=== PATIENT | female | born 1975 | race Caucasian/White ===

== ENCOUNTER 2017-02-02 12:21 | Observation (INO) | payer BC ==
[~2017-02-02] VITALS: Ht 170.2 cm; Wt 143.0 kg
[2017-02-02 12:23] VITALS: BP 163/104; PULSE 70; RESP 20; TEMP 98.7; O2SAT 98
[2017-02-02 12:56] LABS: BASOPHIL # 0.1 TH/MM3 (0-0.2); BASOPHIL % 0.7 % (0.0-2.0); EOSINOPHIL # 0.2 TH/MM3 (0-0.4); EOSINOPHIL % 1.1 % (0.0-4.0); HEMO FLAGS DIFF FINAL; LYMPH % 22.4 % (9.0-44.0); MEAN CORPUSCULAR HEMOGLOBIN 26.1 PG (27.0-34.0); MEAN CORPUSCULAR HGB CONC 33.4 % (32.0-36.0); MONO % 7.6 % (0.0-8.0); NEUT % 68.2 % (16.0-70.0); PLATELET COUNT 416 TH/MM3 (150-450); RED BLOOD COUNT 4.74 MIL/MM3 (4.00-5.30); RED CELL DISTRIBUTION WIDTH 16.4 % (11.6-17.2); WHITE BLOOD COUNT 13.2 TH/MM3 (4.0-11.0)
--- NOTE | 2017-02-02 13:19 | RADRPT ---
EXAM DATE/TIME: 02/02/2017 12:54 [facility] COMPARISON: No previous studies available for comparison. INDICATIONS : Chest pain. MEDICAL HISTORY : None. SURGICAL HISTORY : None. ENCOUNTER: Initial ACUITY: 1 day PAIN SCORE: 0/10 LOCATION: Bilateral chest FINDINGS: PA and lateral views of the chest demonstrate the lungs to be symmetrically aerated without evidence of mass, infiltrate or effusion. The cardiomediastinal contours are unremarkable. Osseous structure s are intact. CONCLUSION: No acute disease. Bjorn Romero MD on February 02, 2017 at 13:17 Board Certified Radiologist. This report was verified electronically.
[2017-02-02 13:20] LABS: ANION GAP 6 MEQ/L (5-15); BICARBONATE 27.2 MEQ/L (21.0-32.0); BLOOD UREA NITROGEN 10 MG/DL (7-18); CHLORIDE 106 MEQ/L (98-107); GLOMERULAR FILTRATION RATE 90 ML/MIN (>89); POTASSIUM 4.1 MEQ/L (3.5-5.1); SODIUM (NA) 139 MEQ/L (136-145)
[2017-02-02 13:27] LABS: CREATINE KINASE 78 U/L (26-192)
--- NOTE | 2017-02-02 14:02 | PD ---
HPI Chief Complaint: Chest Pain Time Seen by Provider: 14:01 Travel History International Travel<30 days: No Contact w/Intl Traveler<30days: No Traveled to known affect area: No History of Present Illness HPI 41-year-old female came to the emergency room with history of left-sided chest pain radiating to her left side of the jaw and left shoulder. Patient says the pain came out of nowhere around 11:00 when she was at class. Currently she says the pain is 7 out of 10. She had EKG and blood test done was she was in the waiting room. By that time she came in here all the test results were back. Blood test and chest x-ray are within normal limit. No relieving factors. Vital signs are stable. She has never had this kind of pain in the past. No recent long distance travel or any procedure which required prolonged bed rest. No leg pain or swelling of the legs. PFSH Past Medical History Narrative Medical List of her past medical, surgical, social and family history reviewed from the nursing note. Depression: Yes Diabetes: Yes (NO MEDS ) Patient Takes Glucophage: No Thyroid Disease: Yes (HYPO) ?: Not Dilation and Curettage (D&C): Yes Social History Alcohol Use: No Tobacco Use: Yes (PPD) Substance Use: No Allergies-Medications (Allergen,Severity, Reaction): Coded Allergies: Penicillin (Verified Allergy, Severe, rash, 02/08/17) Metformin (Verified Allergy, Intermediate, diarrhea, 02/02/17) Sulfa (Verified Allergy, Mild, upset stomach, 02/02/17) Comments List of her allergies reviewed from the nursing note. Reported Meds & Prescriptions Reported Meds & Active Scripts Active Reported Levothyroxine (Levothyroxine Sodium) 125 Mcg Tab 125 Mcg PO DAILY Omeprazole 40 Mg Cap 40 Mg PO DAILY Claritin (Loratadine) 10 Mg Tab 10 Mg PO DAILY Wellbutrin Xl 24 HR (Bupropion HCl) 300 Mg Tab 300 Mg PO DAILY Narrative Medication Awaiting for the nurse to do med reconciliation. Review of Systems Except as stated in HPI: all other systems reviewed are Neg Physical Exam Narrative GENERAL: Awake, alert, morbidly obese, mild distress, anxious SKIN: Focused skin assessment warm/dry. HEAD: Atraumatic. Normocephalic. EYES: Pupils equal and round. No scleral icterus. No injection or drainage. ENT: No nasal bleeding or discharge. Mucous membranes pink and moist. NECK: Trachea midline. No JVD. CARDIOVASCULAR: Regular rate and rhythm. No murmur appreciated. RESPIRATORY: No accessory muscle use. Clear to auscultation. Breath sounds equal bilaterally. GASTROINTESTINAL: Abdomen soft, non-tender, nondistended. Hepatic and splenic margins not palpable. MUSCULOSKELETAL: No obvious deformities. No clubbing. No cyanosis. No edema. NEUROLOGICAL: Awake and alert. No obvious cranial nerve deficits. Motor grossly within normal limits. Normal speech. PSYCHIATRIC: Appropriate mood and affect; insight and judgment normal. Data Data Last Documented VS Orders Electrocardiogram (02/02/17 12:25) Complete Blood Count With Diff (02/02/17 12:25) Basic Metabolic Panel (Bmp) (02/02/17 12:25) Ckmb (Isoenzyme) Profile (02/02/17 12:25) Troponin I (02/02/17 12:25) Chest, Pa & Lat (02/02/17 12:25) Aspirin Chew (Aspirin Chew) (02/02/17 14:15) Admit Order (Ed Use Only) (02/02/17 14:12) Labs MDM Medical Decision Making Medical Screen Exam Complete: Yes Emergency Medical Condition: Yes Medical Record Reviewed: Yes Interpretation(s) Twelve-lead EKG was reviewed by me. Normal sinus rhythm, normal axis, nonspecific ST-T wave changes. Heart rate of 65 bpm. Differential Diagnosis ACS, no STEMI, nonspecific chest pain Narrative Course 2:05 PM I have ordered 2 baby aspirin's for chew. Given the atypical chest pain I've ordered an observation in the chest pain center. Procedures EKG Prior to Arrival: Yes Diagnosis Primary Impression: Chest pain Qualified Code: R07.9 - Chest pain, unspecified type Admitting Information Admitting Physician Requests: Observation Magdy Mckay MD Feb 02, 2017 14:02 Eosinophils (%) (Auto) 1.1 % Basophils (%) (Auto) 0.7 % Neutrophils # (Auto) 9.0 TH/MM3 Lymphocytes # (Auto) 3.0 TH/MM3 Monocytes # (Auto) 1.0 TH/MM3 Eosinophils # (Auto) 0.2 TH/MM3 Basophils # (Auto) 0.1 TH/MM3 CBC Comment DIFF FINAL Differential Comment Sodium Level 139 MEQ/L Potassium Level 4.1 MEQ/L Chloride Level 106 MEQ/L Carbon Dioxide Level 27.2 MEQ/L Anion Gap 6 MEQ/L Blood Urea Nitrogen 10 MG/DL Creatinine 0.72 MG/DL Estimat Glomerular Filtration 90 ML/MIN Rate Random Glucose 105 MG/DL Calcium Level 8.8 MG/DL Total Creatine Kinase 78 U/L Troponin I LESS THAN 0.02 NG/ML MDM Medical Decision Making Medical Screen Exam Complete: Yes Emergency Medical Condition: Yes Medical Record Reviewed: Yes Interpretation(s) Twelve-lead EKG was reviewed by me. Normal sinus rhythm, normal axis, nonspecific ST-T wave changes. Heart rate of 65 bpm. Differential Diagnosis ACS, no STEMI, nonspecific chest pain Narrative Course 2:05 PM I have ordered 2 baby aspirin's for chew. Given the atypical chest pain I've ordered an observation in the chest pain center. Procedures EKG Prior to Arrival: Yes Diagnosis Primary Impression: Chest pain Qualified Code: R07.9 - Chest pain, unspecified type Admitting Information Admitting Physician Requests: Observation Magdy Mckay MD Feb 02, 2017 14:02
[2017-02-02] MEDS ORDERED: ASPIRIN 81 MG CHEW TAB CHEW ONE (14:15)
[2017-02-02] MEDS ORDERED: ONDANSETRON HCL 4 MG/2 ML VIAL IV PRN (14:45)
[2017-02-02] MEDS ORDERED: NITROGLYCERIN 0.4 MG SL 25 TABS/BTL SL PRN (14:45)
[2017-02-02] MEDS ORDERED: SODIUM CHLORIDE 0.9% FLUSH 10 ML FLUSH IV FLUSH PRN (14:45)
[2017-02-02 15:11] VITALS: BP 123/74; PULSE 70; RESP 18; O2SAT 99
--- NOTE | 2017-02-02 15:29 | HHI.HP ---
HPI Primary Care Physician No Primary Care Physician Chief Complaint Chest pain History of Present Illness 41-year-old female presents to emergency room with an onset of chest discomfort at 11 AM. Characterized as a sharp and stabbing quick pain located substernally. Severity 10/10. Currently 7/10. Radiation to her left arm and left jaw. Duration has been constant although waxed and waned in severity. Associated symptoms included nausea. No vomiting or diaphoresis. No known precipitating factors. No known relieving factors. Position, twisting, or movement do not make pain better or worse. She has never had chest discomfort in the past or formal cardiac testing. Endorses she has been told she is a pre- diabetic and is a current smoker. No recent travel, illness, or history of DVT. Review of Systems General: No fatigue,weakness, fever, chills, or recent illness HEENT: No STEPHEN, no vision changes, no nasal congestion or drainage, no dysphasia CV: As stated above, continues to have chest discomfort /10. No palpitations, intermittent leg pain, or dizziness RESP: No SOB, cough, wheeze, or recent URI GI: Nausea has subsided. No vomiting, bowel changes, diarrhea, constipation, pain, distention, melena, blood in the stool. No change in appetite, no unintentional weight gain or weight loss. : No dysuria, urgency, frequency. Currently on her menses. EXT: No lower leg edema, no paraesthesias MS: No discomfort or change in ROM NEURO: No change in memory, dizziness, difficulty with balance, LOC, motor/ sensory deficits PSYCH: Reports situational stress regarding working full-time and going to school full-time. Endorses lack of support is her family support lives in [place]. No suicidal ideation. SKIN: No rashes, no concerning lesions Past Family Social History Allergies: Coded Allergies: Metformin (Verified Allergy, Intermediate, diarrhea, 02/02/17) Sulfa (Verified Allergy, Mild, upset stomach, 02/02/17) Past Medical History Hypothyroidism, GERD, depression Past Surgical History Cholecystectomy, tonsillectomy, right knee ACL repair, cyst removed from right wrist age 20 Reported Medications Levothyroxine sodium 125 mcg daily Wellbutrin 300 mg daily Claritin 10 mg daily Omeprazole 40 mg daily Active Ordered Medications Current Medications Medications (Trade) Dose Ordered Sig/Conchis Route Start Time Stop Time Status Last Admin (Tylenol) 500 mg Q4H PRN PO 02/02/17 14:45 (Zofran Inj) 4 mg Q6H PRN IV 02/02/17 14:45 (Nitrostat Sl) 0.4 mg Q5M PRN SL 02/02/17 14:45 Family History Positive for early onset cardiovascular disease. Mother cardiac stents in her mid 40s, sister cardiac stent at age 32. Father at age 34 from brain cancer. Social History No known hyperlipidemia or hypertension. Last visit to PCP nearly 2 years ago she was told she is a "prediabetic." Smokes 1 pack daily since age of 14. Denies any alcohol or illegal drug use. 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 Single. No chance of . Last menses 02/02/17. Past cardiac testing No formal cardiac testing. Never required a bottle carrier. Physical Exam Vital Signs Vital Signs Date Time Temp Pulse Resp B/P Pulse Ox O2 Delivery O2 Flow Rate FiO2 02/02/17 15:11 70 18 123/74 99 Room Air 02/02/17 12:23 98.7 70 20 163/104 98 Room Air Physical Exam GENERAL: Alert WN, WD, NAD, pleasant, obese, female HEAD: NC, AT EYES: Sclera clear, conjunctiva without injection, pupils equal and round ENT: Mucous membranes pink and moist NECK: Supple, no masses CV: RRR, without murmur, rub, gallop, no JVD, S1-S2 no S3-S4. Generalized chest discomfort with palpation, however pain not reproducible. RESP: Clear lungs throughout bilateral, no crackles, wheeze, rhonchi, symmetrical chest rise, nonlabored, able to speak in full sentences ABD: Soft, obese, NT, ND, no masses, positive bowel tones, negative Samayoa's sign BACK: No CVAT EXT: Pulses +24, no dependent edema MS: Normal tone 4 extremities, nontender, no obvious deformities, full range of motion NEURO: CN II through CN XII grossly intact, motor strength 5/5, gait WNL PSYCH: A+O 3, pleasant affect, appropriate speech, appropriate mood and affect , insight and judgment SKIN: Normal turgor, normal texture, no lesions, no rashes, brisk cap refill, even hair distribution Laboratory Laboratory Tests Test 02/02/17 12:37 White Blood Count 13.2 Red Blood Count 4.74 Hemoglobin 12.4 Hematocrit 37.0 Mean Corpuscular Volume 78.0 Mean Corpuscular Hemoglobin 26.1 Mean Corpuscular Hemoglobin 33.4 Concent Red Cell Distribution Width 16.4 Platelet Count 416 Mean Platelet Volume 7.7 Neutrophils (%) (Auto) 68.2 Lymphocytes (%) (Auto) 22.4 Monocytes (%) (Auto) 7.6 Eosinophils (%) (Auto) 1.1 Basophils (%) (Auto) 0.7 Neutrophils # (Auto) 9.0 Lymphocytes # (Auto) 3.0 Monocytes # (Auto) 1.0 Eosinophils # (Auto) 0.2 Basophils # (Auto) 0.1 CBC Comment DIFF FINAL Differential Comment Sodium Level 139 Potassium Level 4.1 Chloride Level 106 Carbon Dioxide Level 27.2 Anion Gap 6 Blood Urea Nitrogen 10 Creatinine 0.72 Estimat Glomerular Filtration 90 Rate Random Glucose 105 Calcium Level 8.8 Total Creatine Kinase 78 Troponin I LESS THAN 0.02 Result Diagram: 02/02/17 1237 02/02/17 1237 Imaging Last Impressions Chest X-Ray 02/02/17 1225 Signed Impressions: Service Date/Time: January 12:54 - CONCLUSION: No acute disease. Bjorn Romero MD Course EKG First EKG-Normal sinus rhythm, no st t segment changes Second EKG-Normal sinus rhythm, no st t segment changes Assessment and Plan Assessment and Plan #1 Chest painadmitted to chest pain center. Will complete 3 sets of EKGs, cardiac enzymes, and monitor overnight. Will be seen and evaluated by Dr. Jaz Leal. Discussed in length with patient possibility having a stress test in the morning. Patient is agreeable to this plan of care. #2 Musculoskeletal painToradol 30 mg IV 1 dose. #3 GERDcontinue omeprazole #4 Depressioncontinue Wellbutrin #5 Tobacco usediscussed and educated on risks of tobacco use. Encouraged patient to quit smoking. #6 Diabeteshemoglobin A1c, encouraged increasing daily activity, weight loss, and decreasing sugar intake, especially avoiding sugary drinks. Establish with a PCP for disease prevention and medical care. 02/03/17 8:30 seen and evaluated by Dr. Jaz Leal. Patient will complete an treadmill stress test. Patient informed of hemoglobin A1c of 6.8%. Encouraged a low carbohydrate diet and weight loss. Follow with PCP for further instruction. After further discussion with patient she endorses she was on diabetic medication in the past and is currently working with her PCP. Endorses she is not happy with her current PCP and is looking for a new provider. Encouraged to keep current PCP at this time until able to find new provider. Elba Moreno Feb 02, 2017 15:29
[2017-02-02] MEDS ORDERED: IBUPROFEN 600 MG TAB PO ONE (15:30)
[2017-02-02] MEDS ORDERED: KETOROLAC TROMETHAMINE 30 MG/ML (IVP) VIAL IV PUSH ONE (15:30)
[2017-02-02 16:00] VITALS: PULSE 65
[2017-02-02 16:25] LABS: CREATINE KINASE 71 U/L (26-192)
[2017-02-02] MEDS ORDERED: LORA-361 PO (16:31)
[2017-02-02] MEDS ORDERED: WELLTAB39 PO (16:31)
[2017-02-02] MEDS ORDERED: LEVO125T4 PO (16:32)
[2017-02-02] MEDS ORDERED: OMEP40CA2 PO (16:32)
[2017-02-02 16:34] VITALS: BP 128/78; PULSE 68; TEMP 96.8; O2SAT 96
[2017-02-02 16:46] LABS: HEMOGLOBIN A1a 1.6 %; HEMOGLOBIN A1b 2.1 %
[2017-02-02 17:19] LABS: APTT (PATIENT) 29.4 SEC (24.3-30.1); INTERNATIONAL NORMALIZED RATIO 0.9 RATIO; PROTHROMBIN TIME - PATIENT 10.3 SEC (9.8-11.6)
[2017-02-02 19:21] LABS: CREATINE KINASE 68 U/L (26-192)
[2017-02-02 19:24] VITALS: BP 129/69; PULSE 80; RESP 20; TEMP 98.4; O2SAT 96
[2017-02-02] MEDS: buPROPion HCL 150 MG SUSTAINED RELEASE TAB PO SCH (20:28)
[2017-02-02] MEDS: SODIUM CHLORIDE 0.9% FLUSH 10 ML FLUSH IV FLUSH SCH (20:35)
[2017-02-02] MEDS: ACETAMINOPHEN 500 MG CPLT PO PRN (20:45)
--- NOTE | 2017-02-02 22:29 | EKG ---
Date Performed: 02/02/2017 Time Performed: 16:34:35 PTAGE: 41 years EKG: SINUS BRADYCARDIA POSSIBLE INFERIOR MYOCARDIAL INFARCTION ABNORMAL ECG PREVIOUS TRACING : 02/02/2017 16.04 Compared to previous tracing, arm lead reversal is no longe r present. DOCTOR: Kwaku Wong Interpretating Date/Time 02/02/2017 22:28:46
--- NOTE | 2017-02-02 22:43 | EKG ---
Date Performed: 02/02/2017 Time Performed: 12:29:08 PTAGE: 41 years EKG: Sinus rhythm NORMAL ECG NO PREVIOUS TRACING DOCTOR: Kwaku Wong Interpretating Date/Time 02/02/2017 22:41:51
[2017-02-02 23:30] VITALS: PULSE 63
[2017-02-03] VITALS: BP 136/80; PULSE 66; RESP 20; TEMP 97.5; O2SAT 96
[2017-02-03 04:40] VITALS: BP 110/69; PULSE 68; RESP 20; TEMP 98.1; O2SAT 96
[2017-02-03] MEDS: ACETAMINOPHEN 500 MG CPLT PO PRN (04:49)
[2017-02-03] MEDS ORDERED: LEVOTHYROXINE SODIUM 125 MCG TAB PO SCH (06:00)
[2017-02-03 08:22] VITALS: BP 117/56; PULSE 65; RESP 18; TEMP 98.2; O2SAT 95
[2017-02-03] MEDS: buPROPion HCL 150 MG SUSTAINED RELEASE TAB PO SCH (08:39)
[2017-02-03] MEDS: SODIUM CHLORIDE 0.9% FLUSH 10 ML FLUSH IV FLUSH SCH (08:43)
[2017-02-03] MEDS ORDERED: PANTOPRAZOLE SOD 40 MG DELAYED RELEASE TAB PO SCH (09:00)
[2017-02-03] MEDS ORDERED: NON-FORMULARY DRUG (Omeprazole 40 MG) PO SCH (09:00)
[2017-02-03] MEDS ORDERED: buPROPion HCL 150 MG EXTENDED RELEASE TAB PO SCH (09:00)
[2017-02-03] MEDS ORDERED: LORATADINE 10 MG TAB PO SCH (09:00)
[2017-02-03 09:14] VITALS: O2SAT 94
--- NOTE | 2017-02-03 10:57 | HHI.DCPOC ---
Discharge Care Plan Diagnosis: (1) Atypical chest pain (2) Type 2 diabetes mellitus (3) Tobacco abuse (4) Situational stress Goals to Promote Your Health * To prevent worsening of your condition and complications * To maintain your health at the optimal level Directions to Meet Your Goals Take your medications as prescribed Follow your dietary instruction Follow activity as directed Keep your appointments as scheduled Take your immunizations and boosters as scheduled If your symptoms worsen call your PCP, if no PCP go to Urgent Care Center or Emergency Room Smoking is Dangerous to Your Health. Avoid second hand smoke Call the 24-hour hour crisis hotline for domestic abuse at Elba Moreno Feb 03, 2017 10:56
[2017-02-03 11:34] VITALS: BP 121/67; PULSE 74; RESP 19; TEMP 97.9; O2SAT 97
--- NOTE | 2017-02-03 11:34 | TR ---
Date Performed: 02/03/2017 Time Performed: 10:09:05 DOCTOR: Jaz Leal DRUG LIST: CLINICAL HISTORY: REASON FOR TEST: REASON FOR ENDING: OBSERVATION: CONCLUSION: Simon procotol completed, stopped sec to leg fatigue.. Maximum JI=585 % Max HR Achie laura=85.0% Maximum RJ=828/80 Total Exercise Time=6:58. No reprod chest discomfort. No ectopy. No st t segment changes to sugg ischemia. Normal bp response. Good exercise tolerance. Recovery quick and unr emarkable. COMMENTS:
--- NOTE | 2017-02-03 11:37 | EKG ---
Date Performed: 02/02/2017 Time Performed: 20:42:37 PTAGE: 41 years EKG: Sinus rhythm NORMAL ECG Since PREVIOUS TRACING , no significant change noted DOCTOR: Jaz Leal Interpretating Date/Time 02/03/2017 11:35:40
--- NOTE | 2017-02-03 11:38 | EKG ---
Date Performed: 02/02/2017 Time Performed: 18:32:27 PTAGE: 41 years EKG: Sinus rhythm POSSIBLE INFERIOR MYOCARDIAL INFARCTION BORDERLINE ECG Since PREVIOUS TRACING , no significant change noted PREVIOUS TRACIN02/02/2017 16.34 DOCTOR: Jaz Leal Interpretating Date/Time 02/03/2017 11:35:53
[2017-02-08] MEDS ORDERED: ZANT150T2 PO (13:59)
[2017-02-09] MEDS ORDERED: BLOOD GLUCOSE M1 KIT (14:06)
[2017-02-09] MEDS ORDERED: BLOOD GLUCOSE T1 TES (14:06)
[2017-02-17] MEDS ORDERED: CIPR0.3S EACH EAR (09:05)
[2017-02-17] MEDS ORDERED: ERGO1CAP10 PO (09:05)
[2017-02-17] MEDS ORDERED: FLUT50SP EACH NARE (09:05)
[2017-02-17] MEDS ORDERED: LEVO137T2 PO (09:05)
[2017-02-17] MEDS ORDERED: METF500T PO (09:05)
[2017-02-17] MEDS ORDERED: FLUC150T PO (09:05)
[2017-03-23] MEDS ORDERED: ERGO1CAP30 PO (08:19)
[2017-03-23] MEDS ORDERED: WELLTAB39 PO (08:19)
[2017-03-23] MEDS ORDERED: OMEP40CA2 PO (08:19)
[2017-03-23] MEDS ORDERED: METF500T PO (08:19)
[2017-03-23] MEDS ORDERED: HYDR-3133 PO (08:49)
[2017-03-23] MEDS ORDERED: CEFD300C PO (08:49)
[2017-04-10] MEDS ORDERED: AUGM875T3 PO (08:45)
[2017-04-13] MEDS ORDERED: METR500T10 PO (15:57)
[2017-04-21] MEDS ORDERED: FLUC150T PO (17:00)
== END 2017-02-03 12:11 | disposition home or self-care (01) ==
LOC: NEPE 12:21 → NEDH 14:13 → NEPHCDU 15:32
PROVIDERS: ADMIT Internal Medicine Interventional Cardiology; ATTEND Internal Medicine Interventional Cardiology
DX: R07.9 Chest pain, unspecified (principal); M79.1 Myalgia; E03.9 Hypothyroidism, unspecified; K21.9 Gastro-esophageal reflux disease without esophagitis; F32.9 Major depressive disorder, single episode, unspecified; E11.9 Type 2 diabetes mellitus without complications; F17.200 Nicotine dependence, unspecified, uncomplicated; Z88.2 Allergy status to sulfonamides; Z88.8 Allergy status to other drugs, medicaments and biological substances; Z82.49 Family history of ischemic heart disease and other diseases of the circulatory system
CPT/HCPCS: 71020; 80048; 82550; 83036; 84484; 85025; 85610; 85730; 93005; 93017; 99285; G0378; J1885